=== PATIENT | female | born 1995 | race American Indian/Alaskan Native ===

== ENCOUNTER 2018-09-14 07:28 | Inpatient (IN) | payer OTHER ==
[2018-09-14] MEDS ORDERED: LACTATED RINGERS 1,000 ML ONE (10:23)
[2018-09-14] MEDS ORDERED: XYLOCAINE 2% INFILTRATI ONE (10:27)
[2018-09-14] MEDS ORDERED: SUBLIMAZE IV PRN (10:27)
[2018-09-14] MEDS ORDERED: MINERAL OIL PO PRN (10:27)
[2018-09-14] MEDS ORDERED: ZOFRAN IV PRN (10:27)
[2018-09-14] MEDS ORDERED: BRETHINE SUB-Q PRN (10:44)
--- NOTE | 2018-09-14 10:47 | History and Physical Report ---
History of Present Illness Date of examination: 09/14/18 (IUP@38w in active labor) History of present illness: EDC Confirmation: 09/24/2018 Gestational Age: 12 weeks Past History : 2 Term Births: 1 Premature Births: 0 Living Children: 1 Para: 1 Mult. Births: 0 Prev : 0 Aborta: 0 Elect. Ab: 0 Spont. 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 of genital herpes: no Partner hx. of genital herpes: no Rash, Viral, or Febrile illness since last LMP? no Varicella/Chicken Pox Status: Previous Disease Genetic History Congenital Heart Defect: Mom: no Dad: no Lucas Disease: Mom: no Dad: no Thalassemia Mom: no Dad: no Neural Tube Defect Mom: no Dad: no Down's Syndrome Mom: no Dad: no Steve-Sachs Mom: no Dad: no Sickle Cell Disease/Trait Mom: no Dad: no Hemophilia Mom: no Dad: no Muscular Dystrophy Mom: no Dad: no Cystic Fibrosis Mom: no Dad: no Umer Chorea Mom: no Dad: no Mental Retardation Mom: no Dad: no Fragile X Mom: no Dad: no Other Genetic/Chromosomal Disorder Mom: no Dad: no Child w/other defect Mom: no Dad: no Enviromental Exposures Xray Exposure: no Medication, drug, or alcohol use since LMP: no Chemical/Other Exposure: no Exposure to Cat Liter: no Hx of Parvovirus (Fifth Disease): no Occupational Exposure to Children: none Current Allergies (reviewed today): No known allergies Past History - Obstetrical History Expected Date of Delivery: 09/24/18 Actual Gestation: 38 Week(s) 4 Day(s) : 2 Para: 1 Hx # Term Pregnancies: 1 Number of Pregnancies: 0 Spontaneous Abortions: 0 Induced : 0 Number of Living Children: 1 Medications and Allergies Allergies Allergy/AdvReac Type Severity Reaction Status Date / Time No Known Allergies Allergy Verified 09/14/18 10:41 Active Meds: Active Medications Ephedrine Sulfate (Ephedrine Sulfate) 10 mg IV Q2M PRN PRN Reason: Hypotension Fentanyl (Sublimaze) 100 mcg IV Q2H PRN PRN Reason: Labor Pain Lactated Ringer's (Lactated Ringers) 1,000 mls @ 125 mls/hr IV DIRECT GAMALIEL Oxytocin/Sodium Chloride (Pitocin/Ns 20 Unit/1000ml Drip) 20 units in 1,000 mls @ 125 mls/hr IV DIRECT GAMALIEL Oxytocin/Sodium Chloride (Pitocin/Ns 30 Unit/500ml) 30 units in 500 mls @ 4 mls/hr IV TITR GAMALIEL; Protocol Lidocaine (Xylocaine 2%) 20 ml INFILTRATI ONCE ONE Stop: 09/14/18 10:28 Mineral Oil (Mineral Oil) 30 ml PO QHS PRN PRN Reason: Constipation Ondansetron HCl (Zofran) 4 mg IV Q8H PRN PRN Reason: Nausea And Vomiting Terbutaline Sulfate (Brethine) 0.25 mg SUB-Q ONCE PRN PRN Reason: Hyperstimulation/Hypertonicity - Vital Signs Vital signs: Vital Signs Pulse BP 86 131/56 09/14/18 07:47 09/14/18 07:47 Temp Pulse Resp BP Pulse Ox 97.5 F L 86 131/56 09/14/18 07:50 09/14/18 07:47 09/14/18 07:47 - Physical Exam Breasts: Positive: deferred Cardiovascular: Regular rate, Normal S1, Normal S2 Lungs: Positive: Clear to auscultation, Normal air movement Abdomen: Positive: normal appearance, soft, normal bowel sounds. Negative: distention, tenderness Genitourinary (Female): Positive: normal external genitalia, normal perenium Vulva: both: normal Vagina: Positive: normal moisture. Negative: discharge Cervix: Negative: lesion, discharge Uterus: Positive: normal size, normal contour Adnexa: both: normal Anus/Rectum: Positive: normal perianal skin, heme negative. Negative: rectal mass, hemorrhoids Extremities: Positive: normal Deep Tendon Reflex Grade: Normal +2 - Obstetrical FHR: category 1 Uterine Contraction Monitor Mode: External Cervical Dilatation: 6 (per ship worker) Cervical Effacement Percentage: 100 (BBOW) station: -1 Uterine Contraction Pattern: Regular Uterine Tone Measurement Phase: Resting Uterine Contraction Intensity: Moderate Results All other labs normal. GBS Negative HBsAg Screen Negative Negative *1 RPR Non Reactive Non Reactive *2 Rubella Antibodies, IgG 1.59 index Immune >0.99 *3 Non-immune <0.90 Equivocal 0.90 - 0.99 Immune >0.99 ABO Grouping A *4 Rh Factor Positive *5 Please note: Prior records for this patient's ABO / Rh type are not available for additional verification. Antibody Screen Negative Negative *6 WBC 9.5 x10E3/uL 3.4-10.8 *7 RBC 4.51 x10E6/uL 3.77-5.28 *8 Hemoglobin 13.5 g/dL 11.1-15.9 *9 Hematocrit 40.9 % 34.0-46.6 *10 MCV 91 fL 79-97 *11 MCH 29.9 pg 26.6-33.0 *12 MCHC 33.0 g/dL 31.5-35.7 *13 RDW 13.8 % 12.3-15.4 *14 Platelets 266 x10E3/uL 150-379 *15 Neutrophils 82 % Not Estab. *16 Lymphs 15 % Not Estab. *17 Monocytes 3 % Not Estab. *18 Eos 0 % Not Estab. *19 Basos 0 % Not Estab. *20 ! Immature Cells <No Reported Value> *21 Neutrophils (Absolute) [H] 7.7 x10E3/uL 1.4-7.0 *22 Lymphs (Absolute) 1.4 x10E3/uL 0.7-3.1 *23 Monocytes(Absolute) 0.3 x10E3/uL 0.1-0.9 *24 Eos (Absolute) 0.0 x10E3/uL 0.0-0.4 *25 Baso (Absolute) 0.0 x10E3/uL 0.0-0.2 *26 ! Immature Granulocytes 0 % Not Estab. *27 ! Immature Grans (Abs) 0.0 x10E3/uL 0.0-0.1 *28 ! NRBC <No Reported Value> *29 Hematology Comments: <No Reported Value> *30 Tests: (2) HB Solu + [facility] ([id number]) Hemoglobin (Hgb) Solubility Negative Negative *31 Tests: (3) HCV Ab w/Rflx to Verification ([id number]) ! HCV Ab <0.1 s/co ratio 0.0-0.9 *32 Tests: (4) Comment: ([id number]) ! Comment: [facility] *33 Non reactive HCV antibody screen is consistent with no HCV infection, unless recent infection is suspected or other evidence exists to indicate HCV infection. Assessment and Plan @ 38 weeks in active labor GBS Negative Orders in EMR Anticipate delivery
[2018-09-14] MEDS ORDERED: LACTATED RINGERS 1,000 ML IV SCH (11:00)
[2018-09-14] MEDS ORDERED: PITOCin/NS 20 UNIT/1000ML DRIP 20 UNITS/1,000 ML BAG IV SCH (11:00)
[2018-09-14] MEDS ORDERED: PITOCin/NS 30 UNIT/500ML 30 UNITS/500 ML BAG IV SCH (11:00)
[2018-09-14 11:21] LABS: Hematocrit 35.9 % (30.3-42.9); Hemoglobin 11.3 gm/dl (10.1-14.3); Mean Corpuscular HGB Conc 32 % (30-34); Mean Corpuscular Volume 83 fl (79-97); Platelet Count 272 K/mm3 (140-440); Red Blood Count 4.36 M/mm3 (3.65-5.03); Red Cell Distribution Width 15.2 % (13.2-15.2)
--- NOTE | 2018-09-14 12:09 | Progress Note ---
Assessment and Plan start pitocin Anticipate delivery. Pt desires IV pain medication. Subjective - Subjective Date of service: 09/14/18 (tolerating labor well) Interval history: EDC Confirmation: 09/24/2018 Gestational Age: 12 weeks Past History : 2 Term Births: 1 Premature Births: 0 Living Children: 1 Para: 1 Mult. Births: 0 Prev : 0 Aborta: 0 Elect. Ab: 0 Spont. 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 of genital herpes: no Partner hx. of genital herpes: no Rash, Viral, or Febrile illness since last LMP? no Varicella/Chicken Pox Status: Previous Disease Genetic History Congenital Heart Defect: Mom: no Dad: no Lucas Disease: Mom: no Dad: no Thalassemia Mom: no Dad: no Neural Tube Defect Mom: no Dad: no Down's Syndrome Mom: no Dad: no Steve-Sachs Mom: no Dad: no Sickle Cell Disease/Trait Mom: no Dad: no Hemophilia Mom: no Dad: no Muscular Dystrophy Mom: no Dad: no Cystic Fibrosis Mom: no Dad: no Umer Chorea Mom: no Dad: no Mental Retardation Mom: no Dad: no Fragile X Mom: no Dad: no Other Genetic/Chromosomal Disorder Mom: no Dad: no Child w/other defect Mom: no Dad: no Enviromental Exposures Xray Exposure: no Medication, drug, or alcohol use since LMP: no Chemical/Other Exposure: no Exposure to Cat Liter: no Hx of Parvovirus (Fifth Disease): no Occupational Exposure to Children: none Current Allergies (reviewed today): No known allergies Patient reports: movement normal Objective - Vital Signs Vital Signs: Vital Signs - 12hr 09/14/18 09/14/18 07:47 07:50 Temperature 97.5 F L Pulse Rate 86 Blood Pressure 131/56 - Exam Breasts: deferred Cardiovascular: Regular rate Lungs: Normal air movement Abdomen: Present: normal appearance, soft. Absent: distention, tenderness Uterus: Present: normal FHR: auscultation normal, category 1 Uterine Contraction Monitor Mode: External Cervical Dilatation: 6 (ROM clear) Cervical Effacement Percentage: 70 station: -2 Uterine Contraction Pattern: Regular Uterine Tone Measurement Phase: Resting Uterine Contraction Intensity: Moderate Extremities: normal Deep Tendon Reflex Grade: Normal +2 - Labs Labs: Abnormal Labs 09/14/18 10:40 WBC 11.3 H MCH 26 L Laboratory Results - last 24 hr 09/14/18 09/14/18 10:40 10:40 WBC 11.3 H RBC 4.36 Hgb 11.3 Hct 35.9 MCV 83 MCH 26 L MCHC 32 RDW 15.2 Plt Count 272 Blood Type A POSITIVE Antibody Screen Negative
[2018-09-14] MEDS ORDERED: TYLENOL PO PRN (14:46)
[2018-09-14] MEDS ORDERED: NORCO 5/325 PO PRN (14:46)
[2018-09-14] MEDS ORDERED: LANSINOH TP PRN (14:46)
[2018-09-14] MEDS ORDERED: MILK OF MAGNESIA PO PRN (14:46)
[2018-09-14] MEDS ORDERED: DULCOLAX PR PRN (14:46)
[2018-09-14] MEDS ORDERED: TUCKS PAD TP PRN (14:46)
[2018-09-14] MEDS ORDERED: PHENERGAN PO PRN (14:46)
[2018-09-14] MEDS ORDERED: BENADRYL PO PRN (14:46)
[2018-09-14] MEDS ORDERED: PHENERGAN PR PRN (14:46)
[2018-09-14] MEDS ORDERED: DERMOPLAST TP PRN (14:46)
[2018-09-14] MEDS ORDERED: SODIUM CHLORIDE FLUSH SYRINGE 10 ML IV SCH (15:00)
--- NOTE | 2018-09-14 15:02 | Procedure Note ---
Addendum entered and electronically signed by LATONIA MURRY CNM 09/14/18 15:08: CAN X 2 easily reduced Original Note: OB Delivery Note - Delivery Date of Delivery: 09/14/18 Apparel Patternmaker: LATONIA MURRY Estimated blood loss: 300cc - Vaginal Delivery presentation: vertex Delivery position: OA Intrapartum events: none Delivery induction: none Delivery augmentation: rupture of membranes Delivery monitor: external FHT, external uterine Route of delivery: Delivery placenta: spontaneous Delivery cord: 3 umbilical vessels Episiotomy: none Delivery laceration: none Anesthesia: intravenous Delivery comments: live born male over intact perineum Baby to mom's abdomen skin to skin. Cord blood obtained Placenta and membrane delivered complete and intact, 3 vessel cord. Pit IVFs 8/9, EBL 300, Wgt 6-10 Mom and baby remain LDR stable. - A at 1 minute: 8 at 5 minutes: 9 Infant Gender: Male (wgt 6-10)
[2018-09-14] MEDS: IBUPROFEN PO SCH ×2 (18:43→23:06)
[2018-09-14] MEDS ORDERED: COLACE PO SCH (22:00)
[2018-09-15 02:56] LABS: Hematocrit 35.1 % (30.3-42.9); Hemoglobin 11.3 gm/dl (10.1-14.3)
[2018-09-15] MEDS: IBUPROFEN PO SCH ×2 (05:34→13:11)
[2018-09-15] MEDS ORDERED: BOOSTRIX IM ONE (06:00)
--- NOTE | 2018-09-15 09:06 | Discharge Summary ---
Addendum entered and electronically signed by JASON DEJESUS CNM 09/15/18 09:06: Pt given instructions to return to office in 4 weeks, she plans on using paraguard for contraception. Original Note: Providers - Providers Date of Admission: 09/14/18 11:39 Date of discharge: 09/15/18 (desires d/c home) Attending physician: EMEKA CONNELL Primary care physician: EMEKA CONNELL Hospitalization Reason for admission: Labor Condition: Good Pertinent studies: post delivery H&H 11.3/35.1 Procedures: Hospital course: uncomplicated and course Disposition: DC-01 TO HOME OR SELFCARE - Discharge Diagnoses (1) Normal spontaneous vaginal delivery Status: Acute Core Measure Documentation - Palliative Care Palliative Care/ Comfort Measures: Not Applicable - Core Measures Any of the following diagnoses?: none Exam - Constitutional Vitals: Temp Pulse Resp BP Pulse Ox 98.2 F 69 20 107/57 95 09/15/18 07:43 09/15/18 07:43 09/15/18 07:43 09/15/18 07:43 09/15/18 07:43 General appearance: Present: no acute distress, well-nourished - EENT Eyes: Present: PERRL ENT: hearing intact, clear oral mucosa - Neck Neck: Present: supple, normal ROM - Respiratory Respiratory effort: normal Respiratory: bilateral: CTA - Cardiovascular Heart Sounds: Present: S1 & S2. Absent: rub, click - Extremities Extremities: pulses symmetrical, No edema Peripheral Pulses: within normal limits - Abdominal General gastrointestinal: Present: soft, non-tender, non-distended, normal bowel sounds Female genitourinary: Present: normal - Integumentary Integumentary: Present: clear, warm, dry - Musculoskeletal Musculoskeletal: gait normal, strength equal bilaterally - Psychiatric Psychiatric: appropriate mood/affect, intact judgment & insight - Neurologic Neurologic: CNII-XII intact, moves all extremities - Additional findings Additional findings: fundus firm, lochia scant, Plan Activity: no restrictions Diet: regular Follow up with: EMEKA CONNELL MD [Primary Care Provider] - 7 Days
[2018-09-15] MEDS ORDERED: PRENATAL VITAMIN PO SCH (10:00)
[2018-09-15] MEDS ORDERED: M-M-R II VACCINE SUB-Q ONE (14:46)
[2018-09-15 17:00] VITALS: BP 105/58
== END 2018-09-15 16:30 | disposition home or self-care (01) | DRG 775 ==
LOC: TRG 07:28 → LD 11:39 → OB 18:18
PROVIDERS: ADMIT Obstetrics & Gynecology; ATTEND Obstetrics & Gynecology
PROC: 10E0XZZ Delivery of Products of Conception, External Approach (ICD-10-PCS; principal; 2018-09-14)
PROC: 3E0234Z Introduction of Serum, Toxoid and Vaccine into Muscle, Percutaneous Approach (ICD-10-PCS; 2018-09-15)
DX: O99.52 Diseases of the respiratory system complicating childbirth (principal); Z3A.38 38 weeks gestation of pregnancy; Z37.0 Single live birth; Z23 Encounter for immunization; J45.909 Unspecified asthma, uncomplicated
CPT/HCPCS: 36415; 85014; 85018; 85027; 86592; 86850; 86900; 86901; 90471; 90715; G0378; A6250; J2405; J2590; J3010; J7120